=== PATIENT | female | born 1955 | race Hispanic/Latino ===

== ENCOUNTER 2019-11-24 23:00 | Inpatient (IN) | payer MEDICARE ==
[2019-11-25] MEDS ORDERED: SODIUM CHLORIDE 0.9% 1000 ML IV SOLN IV ONE
[2019-11-25] MEDS ORDERED: ACETAMINOPHEN 325 MG TAB PO ONE (00:01)
[2019-11-25] MEDS ORDERED: ZIPRASIDONE MESYLATE 20 MG VIAL IM ONE (00:30)
[2019-11-25] MEDS ORDERED: WATER FOR INJ Sterile (PF) 10 ML ONE (00:41)
--- NOTE | 2019-11-25 00:56 | XRay Report ---
CHEST 1 VIEW INDICATION: Fever. COMPARISON: none FINDINGS: SUPPORT DEVICES: None. HEART / MEDIASTINUM: No significant abnormality. LUNGS / PLEURA: No significant pulmonary or pleural abnormality. No pneumothorax. ADDITIONAL FINDINGS: IMPRESSION: 1. No acute findings. Signer Name: Delfin Roy MD Signed: 11/25/2019 12:51 AM Workstation Name: [id number]
--- NOTE | 2019-11-25 01:39 | Emergency Department Report ---
HPI - General Chief Complaint: Altered Mental Status Time Seen by Provider: 11/24/19 23:55 - HPI HPI: 64-year-old female presents to the emergency department from [facility] after the patient allegedly had an unwitnessed fall. I am unaware of the patient's ambulatory status but the records from [facility] state that she is to use a wheelchair at all times. The patient has a psychiatric history of bipolar disorder and schizoaffective disorder. There also appears to be some history of dementia as the patient is on Aricept. The patient is a very poor historian. 1 minute she is seen sitting up on the side of the bed talking, and the next minute she is laying down and nonverbal. The [employer] employee who was at bedside does not know this patient very well and is here to be a sitter. ED Past Medical Hx - Past Medical History Previous Medical History?: Yes Hx Hypertension: Yes Hx Psychiatric Treatment: Yes (Bipolar schizophrenia) - Surgical History Past Surgical History?: No - Social History Smoking Status: Unknown if ever smoked Substance Use Type: Other - Medications Home Medications: Home Medications Medication Instructions Recorded Confirmed Last Taken Type Aricept 5 mg PO DAILY 11/25/19 11/25/19 Unknown History Benadryl 50 mg IM Q4H PRN 11/25/19 11/25/19 Unknown History Benadryl CAP 50 mg PO Q4H PRN 11/25/19 11/25/19 Unknown History Cogentin 1 mg PO BID 11/25/19 11/25/19 Unknown History Cogentin 1 mg PO BID 11/25/19 11/25/19 11/24/19 History Haldol 0.5 mg PO BID 11/25/19 11/25/19 11/24/19 History Haldol 5 mg IM Q4H PRN 11/25/19 11/25/19 Unknown History Haldol 5 mg PO Q4H PRN 11/25/19 11/25/19 Unknown History Maalox Advanced Suspension 30 ml PO Q8H PRN 11/25/19 11/25/19 Unknown History Milk of Magnesia 30 ml PO Q12H PRN 11/25/19 11/25/19 Unknown History Mucinex ER 1 tab PO BID 11/25/19 11/25/19 11/24/19 History PROzac 10 mg PO DAILY 11/25/19 11/25/19 11/24/19 History Pepcid 20 mg PO BID 11/25/19 11/25/19 11/24/19 History RisperDAL 4 mg PO DAILY 11/25/19 11/25/19 Unknown History Synthroid 75 mcg PO DAILY 11/25/19 11/25/19 11/24/19 History Tessalon Perles 200 mg PO BID PRN 11/25/19 11/25/19 Unknown History Tylenol 650 mg PO Q4H PRN 11/25/19 11/25/19 Unknown History Zyrtec 10mg tab 10 mg PO DAILY 11/25/19 11/25/19 11/24/19 History ED Review of Systems ROS: Stated complaint: AMS Other details as noted in HPI Comment: Unobtainable due to pts medical conditions Physical Exam - Physical Exam Vital Signs: Vital Signs 11/24/19 23:54 Temperature 101.4 F H Pulse Rate 98 H Respiratory 18 Rate Blood Pressure 103/55 [Left] O2 Sat by Pulse 92 Oximetry Physical Exam: GENERAL: The patient is well-developed well-nourished. HEENT: Normocephalic. Atraumatic. Patient has moist mucous membranes. EYES: Extraocular motions are intact. Pupils equal and reactive to light bilater ally. NECK: Supple. Trachea is midline CHEST/LUNGS: Clear to auscultation. There is no respiratory distress noted. HEART/CARDIOVASCULAR: Regular. There is no tachycardia. ABDOMEN: Abdomen is soft, nontender. Patient has normal bowel sounds. There is no abdominal distention. SKIN: Skin is warm and dry. NEURO: Patient is awake but is not cooperative. Withdraws from painful stimuli. MUSCULOSKELETAL: There is no tenderness or deformity. There is no evidence of acute injury. ED Course Vital Signs 11/24/19 23:54 Temperature 101.4 F H Pulse Rate 98 H Respiratory 18 Rate Blood Pressure 103/55 [Left] O2 Sat by Pulse 92 Oximetry - ABG Interpretation Ph: 7.506 PCO2: 27 PO2: 62 Bicarbonate: 21 Interpretation: respiratory alkalosis, other (hypoxemia) ED Medical Decision Making - Lab Data Result diagrams: 11/25/19 01:07 11/25/19 01:07 - Radiology Data Radiology results: report reviewed, image reviewed interpreted by me: Chest x-ray does not show any acute process. CT HEAD WITHOUT CONTRAST HISTORY: AMS, fall COMPARISON: None TECHNIQUE: CT imaging of the head was performed in the axial, sagittal, and coronal projec tions and bone algorithm in axial projection in the soft tissue algorithm. All CT scans at this location are performed using CT dose reduction for ALARA by means of automated exposure control. CONTRAST: None. FINDINGS: Cerebral and Cerebellar Hemispheres: No evidence of mass or mass effect. No midline shift. No acute hemorrhage. No acute cortical infarction. No extra-axial fluid collection. Ventricles: Normal in size and configuration for age. Osseous Structures: No significant abnormality. Visualized Paranasal Sinuses: No significant abnormality. Additional Findings: None IMPRESSION: 1. No acute intracranial abnormality. CT imaging of the cervical spine was performed in the axial, sagittal, and coronal projections and bone algorithm in axial projection in the soft tissue algorithm. All CT scans at this location are performed using CT dose reduction for ALARA by means of automated exposure control. C1-C2: The ring of C1 is normal. The odontoid is normal. There is no evidence of an offset. There is no evidence of a fracture. The spinal canal is well maintained. C2-C3: The spinal canal is well maintained. The neural foramina are normal. The vertebral bodies are normal. The posterior elements are intact. There is no evidence of a fracture. C3-C4: The spinal canal is well maintained. Mild facet degenerative changes present in the left. The neural foramina are normal. The vertebral bodies are normal. The posterior elements are intact. There is no evidence of a fracture. C4-C5: Small anterior osteophytes are present. The spinal canal is well maintained. Mild facet degenerative changes present left. The neural foramina are normal. The vertebral bodies are normal. The posterior elements are intact. There is no evidence of a fracture. C5-C6: Small anterior osteophytes present. The spinal canal is well maintained. Mild facet degenerative changes present in the left The neural foramina are normal. The vertebral bodies are normal. The posterior elements are intact. There is no evidence of a fracture. C6-C7: The spinal canal is well maintained. The neural foramina are normal. The vertebral bodies are normal. The posterior elements are intact. There is no evidence of a fracture. C7-T1: The spinal canal is well maintained. The neural foramina are normal. The vertebral bodies are normal. The posterior elements are intact. There is no evidence of a fracture. IMPRESSION: There is no evidence of acute injury involving the cervical spine. - Medical Decision Making This patient presents to the emergency department from her psychiatric facility after having some type of unwitnessed fall. However the patient is allegedly also supposed to be solely using a wheelchair while at their facility. Unknown baseline ambulatory status. She has a history of bipolar disorder and schizoaffective disorder. Initially the patient's vital signs show a fever of 101.4F. There is some borderline hypotension so a septic workup was started. No leukocytosis. A lactic acidosis. She was given IV fluid resuscitation and the blood pressure normalized. She was given Tylenol and Toradol and the fever resolved. Secondary to the unwitnessed fall the patient had a CT scan of the head without contrast and a CT of the cervical spine that did not show any bleed, skull fracture, shift, mass, edema, subluxation or any other acute process. Chest x-ray did not show any pneumonia, pleural effusions, or any other acute process. Patient's labs did show a hypokalemia of 2.8. The patient is not taking anything by mouth at this time so she was given rectal Tylenol and IV Toradol. IV potassium chloride has been started. The fever has resolved. Urinalysis did not show any urinary tract infection. Negative for influenza. The patient started having some transient hypoxia. Supplemental oxygen was added and the patient went back up into the mid to high 90s. An ABG was obtained that showed some hypoxemia and respitory alkalosis. Patient will be admitted to the hospital for further evaluation and treatment was accepted for admission by the hospitalist, Dr. Silva. - Differential Diagnosis sepsis, pneumonia, influenza, UTI Critical Care Time: No Critical care attestation.: If time is entered above; I have spent that time in minutes in the direct care of this critically ill patient, excluding procedure time. ED Disposition Clinical Impression: Hypokalemia, Hypoxemia Fever Qualifiers: Fever type: unspecified Qualified Code(s): R50.9 - Fever, unspecified Disposition: OP ADMIT IP TO THIS HOSP Is pt being admited?: Yes Condition: Fair Time of Disposition: 04:01
[2019-11-25] MEDS ORDERED: cefTRIAXone/NS 1 GM/50 ML 1 GM/50 ML BAG IV ONE (01:40)
[2019-11-25 01:45] LABS: Basophils % (Auto) 0.1 % (0.0-1.8); Hematocrit 39.5 % (30.3-42.9); Hemoglobin 13.5 gm/dl (10.1-14.3); Lymphocytes # (Auto) 0.4 K/mm3 (1.2-5.4); Lymphocytes % (Auto) 5.9 % (13.4-35.0); Mean Corpuscular HGB Conc 34 % (30-34); Mean Corpuscular Volume 95 fl (79-97); Monocytes # (Auto) 0.7 K/mm3 (0.0-0.8); Monocytes % (Auto) 9.4 % (0.0-7.3); Red Blood Count 4.15 M/mm3 (3.65-5.03); Red Cell Distribution Width 14.9 % (13.2-15.2)
[2019-11-25] MEDS ORDERED: ACETAMINOPHEN 650 MG RECT SUPP PR ONE (01:54)
[2019-11-25 02:02] LABS: Alanine Aminotransferase 22 units/L (7-56); Albumin 3.3 g/dL (3.9-5); BUN/Creatinine Ratio 25; Blood Urea Nitrogen 20 mg/dL (7-17); Calcium 8.5 mg/dL (8.4-10.2); Hemolysis Index 17
--- NOTE | 2019-11-25 02:08 | Cat Scan Report ---
CT HEAD WITHOUT CONTRAST HISTORY: AMS, fall COMPARISON: None TECHNIQUE: CT imaging of the head was performed in the axial, sagittal, and coronal projections and bone algori thm in axial projection in the soft tissue algorithm. All CT scans at this location are performed using CT dose reduction for ALARA by means of automated e xposure control. CONTRAST: None. FINDINGS: Cerebral and Cerebellar Hemispheres: No evidence of mass or mass effect. No midline shift. No acute hemorrhage. No acute cortical infarction. No extra-axial fluid collection. Ventricles: Normal in size and configuration for age. Osseous Structures: No significant abnormality. Visualized Paranasal Sinuses: No significant abnormality. Additional Findings: None IMPRESSION: 1. No acute intracranial abnormality. NOTE: Acute infarct may not be visible by noncontrast CT. Signer Name: Delfin Roy MD Signed: 11/25/2019 2:03 AM Workstation Name: [id number]
[2019-11-25] MEDS ORDERED: KETOROLAC 30 MG/1 ML INJ IV ONE (02:10)
--- NOTE | 2019-11-25 02:11 | Cat Scan Report ---
CLINICAL DATA: [See Reason for Exam] AMS, fall TECHNICAL DATA: CT imaging of the cervical spine was performed in the axial, sagittal, and coronal projections and [place] algorithm in axial projection in the soft tissue algorithm. All CT scans at this location are performed using CT dose reduction for ALARA by means of automated e xposure control. C1-C2: The ring of C1 is normal. The odontoid is normal. There is no evidence of an offset. There is no evidence of a fracture. The spinal canal is well maintained. C2-C3: The spinal canal is well maintained. The neural foramina are normal. The vertebral bodies a re normal. The posterior elements are intact. There is no evidence of a fracture. C3-C4: The spinal canal is well maintained. Mild facet degenerative changes present in the left. The neural foramina are normal. The vertebral bodies are normal. The posterior elements are intact. T here is no evidence of a fracture. C4-C5: Small anterior osteophytes are present. The spinal canal is well maintained. Mild facet degene rative changes present left. The neural foramina are normal. The vertebral bodies are normal. The p osterior elements are intact. There is no evidence of a fracture. C5-C6: Small anterior osteophytes present. The spinal canal is well maintained. Mild facet degenerati ve changes present in the left The neural foramina are normal. The vertebral bodies are normal. The posterior elements are intact. There is no evidence of a fracture. C6-C7: The spinal canal is well maintained. The neural foramina are normal. The vertebral bodies a re normal. The posterior elements are intact. There is no evidence of a fracture. C7-T1: The spinal canal is well maintained. The neural foramina are normal. The vertebral bodies a re normal. The posterior elements are intact. There is no evidence of a fracture. IMPRESSION: There is no evidence of acute injury involving the cervical spine. Signer Name: Delfin Roy MD Signed: 11/25/2019 2:07 AM Workstation Name: [id number]
[2019-11-25 02:36] LABS: Platelet Count 75 K/mm3 (140-440)
[2019-11-25] MEDS: POTASSIUM CHLORIDE 10 MEQ 10 MEQ/100 ML BAG IV SCH ×4 (03:00→05:17)
[2019-11-25 03:06] LABS: Bacteria,Urine 1+ /HPF (Negative); Bilirubin,Urine NEG (Negative); Blood,Urine MOD (Negative); Color,Urine Yellow (Yellow)
[2019-11-25] MEDS ORDERED: ONDANSETRON 4 MG/2 ML INJ IV PRN (04:03)
[2019-11-25] MEDS ORDERED: MAGNESIUM HYDROXIDE (MOM) ORAL LIQD UDC PO PRN (04:03)
[2019-11-25] MEDS ORDERED: ACETAMINOPHEN 325 MG TAB PO PRN (04:03)
--- NOTE | 2019-11-25 04:13 | History and Physical Report ---
History of Present Illness Date of examination: 11/25/19 Date of admission: 11/25/19 Chief complaint: Altered mental status History of present illness: 64-year-old female resident of [facility] was brought into the emergency room today for evaluation after having an unwitnessed fall. Patient has known history of bipolar disorder, dementia. She is unable to give a very good history as she appears confused. Sitter who is by patient's bedside also was unable to answer most of the questions as she does not know patient very well. Work-up in the emergency room including CT scan of the head and neck were within normal limits. She however had a fever of about 101 F and was also found to be hypokalemic with a potassium of 2.8. She also had episodes of hypoxia and was subsequently placed on oxygen by nasal cannula. Past History Past Medical History: hypertension, other (Bipolar disorder,Schizophrenia) Past Surgical History: No surgical history Social history: no significant social history Family history: no significant family history Medications and Allergies Allergies Allergy/AdvReac Type Severity Reaction Status Date / Time No Known Allergies Allergy Verified 11/25/19 00:42 Home Medications Medication Instructions Recorded Confirmed Last Taken Type Aricept 5 mg PO DAILY 11/25/19 11/25/19 Unknown History Benadryl 50 mg IM Q4H PRN 11/25/19 11/25/19 Unknown History Benadryl CAP 50 mg PO Q4H PRN 11/25/19 11/25/19 Unknown History Cogentin 1 mg PO BID 11/25/19 11/25/19 Unknown History Cogentin 1 mg PO BID 11/25/19 11/25/19 11/24/19 History Haldol 0.5 mg PO BID 11/25/19 11/25/19 11/24/19 History Haldol 5 mg IM Q4H PRN 11/25/19 11/25/19 Unknown History Haldol 5 mg PO Q4H PRN 11/25/19 11/25/19 Unknown History Maalox Advanced Suspension 30 ml PO Q8H PRN 11/25/19 11/25/19 Unknown History Milk of Magnesia 30 ml PO Q12H PRN 11/25/19 11/25/19 Unknown History Mucinex ER 1 tab PO BID 11/25/19 11/25/19 11/24/19 History PROzac 10 mg PO DAILY 11/25/19 11/25/19 11/24/19 History Pepcid 20 mg PO BID 11/25/19 11/25/19 11/24/19 History RisperDAL 4 mg PO DAILY 11/25/19 11/25/19 Unknown History Synthroid 75 mcg PO DAILY 11/25/19 11/25/19 11/24/19 History Tessalon Perles 200 mg PO BID PRN 11/25/19 11/25/19 Unknown History Tylenol 650 mg PO Q4H PRN 11/25/19 11/25/19 Unknown History Zyrtec 10mg tab 10 mg PO DAILY 11/25/19 11/25/19 11/24/19 History Active Meds: Active Medications Acetaminophen (Tylenol) 650 mg PO Q4H PRN PRN Reason: Pain MILD(1-3)/Fever >100.5/YA Potassium Chloride (Kcl 10meq/100ml) 10 meq in 100 mls @ 100 mls/hr IV Q1H ANEL Stop: 11/25/19 05:59 Last Admin: 11/25/19 03:42 Dose: 100 mls/hr Documented by: Sodium Chloride (Nacl 0.9% 1000 Ml) 1,000 mls @ 125 mls/hr IV DIRECT ANEL Ceftriaxone Sodium (Rocephin/Ns 1 Gm/50 Ml) 1 gm in 50 mls @ 100 mls/hr IV Q24HR ANEL; Protocol Magnesium Hydroxide (Milk Of Magnesia) 30 ml PO Q4H PRN PRN Reason: Constipation Ondansetron HCl (Zofran) 4 mg IV Q8H PRN PRN Reason: Nausea And Vomiting Sodium Chloride (Sodium Chloride Flush Syringe 10 Ml) 10 ml IV BID ANEL Sodium Chloride (Sodium Chloride Flush Syringe 10 Ml) 10 ml IV PRN PRN PRN Reason: LINE FLUSH Review of Systems ROS unobtainable: due to mental status Exam - Constitutional Vitals: Temp Pulse Resp BP Pulse Ox 98.5 F 77 31 H 114/71 98 11/25/19 03:17 11/25/19 03:01 11/25/19 03:01 11/25/19 03:01 11/25/19 03:01 General appearance: Present: no acute distress, disheveled - EENT Eyes: Present: PERRL, EOM intact ENT: hearing intact, clear oral mucosa, dentition normal - Neck Neck: Present: supple, normal ROM - Respiratory Respiratory effort: normal Respiratory: bilateral: CTA - Cardiovascular Rhythm: regular Heart Sounds: Present: S1 & S2 - Extremities Extremities: no ischemia, No edema, Full ROM Peripheral Pulses: within normal limits - Abdominal General gastrointestinal: Present: soft, non-tender, non-distended - Integumentary Integumentary: Present: clear, warm, dry - Musculoskeletal Musculoskeletal: strength equal bilaterally - Psychiatric Psychiatric: agitated - Neurologic Neurologic: CNII-XII intact, moves all extremities, other (Confused) Results - Labs CBC & Chem 7: 11/25/19 01:07 11/25/19 01:07 Labs: Abnormal lab results 11/25/19 11/25/19 11/25/19 Range/Units 01:07 01:07 02:45 MCH 33 H (28-32) pg Plt Count 75 L (140-440) K/mm3 Lymph % (Auto) 5.9 L (13.4-35.0) % [place] % (Auto) 9.4 H (0.0-7.3) % Lymph # 0.4 L (1.2-5.4) K/mm3 Seg Neutrophils % 84.6 H (40.0-70.0) % POC ABG pH 7.506 H (7.35-7.45) POC ABG pCO2 27.3 L (35-45) POC ABG pO2 62 L (80-105) Potassium 2.8 L* (3.6-5.0) mmol/L BUN 20 H (7-17) mg/dL AST 51 H (5-40) units/L Albumin 3.3 L (3.9-5) g/dL Assessment and Plan - Patient Problems (1) Fever Current Visit: Yes Status: Acute Plan to address problem: Etiology is unclear. No obvious source of infection. However blood cultures have been drawn patient placed on empiric IV antibiotics. (2) Hypokalemia Current Visit: Yes Status: Acute Plan to address problem: Potassium will be repleted will monitor chemistry. (3) Hypoxemia Current Visit: Yes Status: Acute Plan to address problem: Patient placed on oxygen and will keep O2 saturation greater or equal to 92%. (4) History of bipolar disorder Current Visit: Yes Status: Acute Plan to address problem: We will continue routine home medications. (5) DVT prophylaxis Current Visit: Yes Status: Acute Plan to address problem: We will place on subcutaneous heparin. (6) Full code status Current Visit: Yes Status: Acute
[2019-11-25] MEDS: HEPARIN 5,000 UNIT/1 ML VIAL SUB-Q SCH ×3 (07:11→21:16)
[2019-11-25] MEDS: SODIUM CHLORIDE 0.9% 1000 ML 1,000 ML IV SCH (07:50)
--- NOTE | 2019-11-25 12:45 | Progress Note ---
Assessment and Plan Assessment and plan: SIRS. Etiology is unclear. No obvious source of infection. However blood cultures have been drawn patient placed on empiric IV antibiotics. Hypokalemia. Replete potassium. Follow-up BMP. Acute hypoxemic respiratory failure. Chest x-ray negative. Bipolar disorder. Psychiatric consultation. History Interval history: No new issues overnight. Patient appears confused. Hospitalist Physical - Constitutional Vitals: Temp Pulse Resp BP Pulse Ox 97.5 F L 66 20 89/52 96 11/25/19 06:59 11/25/19 06:59 11/25/19 06:59 11/25/19 06:59 11/25/19 06:59 General appearance: Present: no acute distress, disheveled - EENT Eyes: Present: PERRL, EOM intact ENT: hearing intact, clear oral mucosa, dentition normal - Neck Neck: Present: supple, normal ROM - Respiratory Respiratory effort: normal Respiratory: bilateral: CTA - Cardiovascular Rhythm: regular Heart Sounds: Present: S1 & S2. Absent: gallop, rub - Extremities Extremities: no ischemia, No edema, Full ROM - Abdominal General gastrointestinal: soft, non-tender, non-distended, normal bowel sounds - Integumentary Integumentary: Present: clear, warm, dry - Neurologic Neurologic: CNII-XII intact, moves all extremities Results - Labs CBC & Chem 7: 11/25/19 01:07 11/25/19 01:07 Labs: Laboratory Last Values WBC 7.2 K/mm3 (4.5-11.0) 11/25/19 01:07 RBC 4.15 M/mm3 (3.65-5.03) 11/25/19 01:07 Hgb 13.5 gm/dl (10.1-14.3) 11/25/19 01:07 Hct 39.5 % (30.3-42.9) 11/25/19 01:07 MCV 95 fl (79-97) 11/25/19 01:07 MCH 33 pg (28-32) H 11/25/19 01:07 MCHC 34 % (30-34) 11/25/19 01:07 RDW 14.9 % (13.2-15.2) 11/25/19 01:07 Plt Count 75 K/mm3 (140-440) L 11/25/19 01:07 Lymph % (Auto) 5.9 % (13.4-35.0) L 11/25/19 01:07 [place] % (Auto) 9.4 % (0.0-7.3) H 11/25/19 01:07 Eos % (Auto) 0.0 % (0.0-4.3) 11/25/19 01:07 Baso % (Auto) 0.1 % (0.0-1.8) 11/25/19 01:07 Lymph # 0.4 K/mm3 (1.2-5.4) L 11/25/19 01:07 [place] # 0.7 K/mm3 (0.0-0.8) 11/25/19 01:07 Eos # 0.0 K/mm3 (0.0-0.4) 11/25/19 01:07 Baso # 0.0 K/mm3 (0.0-0.1) 11/25/19 01:07 Seg Neutrophils % 84.6 % (40.0-70.0) H 11/25/19 01:07 Seg Neutrophils # 6.1 K/mm3 (1.8-7.7) 11/25/19 01:07 POC ABG pH 7.506 (7.35-7.45) H 11/25/19 02:45 POC ABG pCO2 27.3 (35-45) L 11/25/19 02:45 POC ABG pO2 62 (80-105) L 11/25/19 02:45 POC ABG HCO3 21.6 (22-26 mml/L) 11/25/19 02:45 POC ABG Total CO2 22 (23-27mmol/L) 11/25/19 02:45 POC ABG O2 Sat 94 11/25/19 02:45 POC ABG Base Excess -1 ((-2) - (+3)mmol/L) 11/25/19 02:45 FiO2 21 % 11/25/19 02:45 Sodium 138 mmol/L (137-145) 11/25/19 01:07 Potassium 2.8 mmol/L (3.6-5.0) L* 11/25/19 01:07 Chloride 101.0 mmol/L (98-107) 11/25/19 01:07 Carbon Dioxide 22 mmol/L (22-30) 11/25/19 01:07 Anion Gap 18 mmol/L 11/25/19 01:07 BUN 20 mg/dL (7-17) H 11/25/19 01:07 Creatinine 0.8 mg/dL (0.7-1.2) 11/25/19 01:07 Estimated GFR > 60 ml/min 11/25/19 01:07 BUN/Creatinine Ratio 25 % 11/25/19 01:07 Glucose 99 mg/dL (65-100) 11/25/19 01:07 Lactic Acid 1.30 mmol/L (0.7-2.0) 11/25/19 01:07 Calcium 8.5 mg/dL (8.4-10.2) 11/25/19 01:07 Total Bilirubin 0.50 mg/dL (0.1-1.2) 11/25/19 01:07 AST 51 units/L (5-40) H 11/25/19 01:07 ALT 22 units/L (7-56) 11/25/19 01:07 Alkaline Phosphatase 92 units/L (35-129) 11/25/19 01:07 Ammonia 28.0 umol/L (25-60) 11/25/19 01:07 Total Protein 7.0 g/dL (6.3-8.2) 11/25/19 01:07 Albumin 3.3 g/dL (3.9-5) L 11/25/19 01:07 Albumin/Globulin Ratio 0.9 % 11/25/19 01:07 TSH 2.920 mlU/mL (0.270-4.200) 11/25/19 01:07 Urine Color Yellow (Yellow) 11/25/19 02:14 Urine Turbidity Slightly-cloudy (Clear) 11/25/19 02:14 Urine pH 5.0 (5.0-7.0) 11/25/19 02:14 Ur Specific [place] 1.021 (1.003-1.030) 11/25/19 02:14 Urine Protein 30 mg/dl mg/dL (Negative) 11/25/19 02:14 Urine Glucose (UA) Neg mg/dL (Negative) 11/25/19 02:14 Urine Ketones Tr mg/dL (Negative) 11/25/19 02:14 Urine Blood Mod (Negative) 11/25/19 02:14 Urine Nitrite Neg (Negative) 11/25/19 02:14 Urine Bilirubin Neg (Negative) 11/25/19 02:14 Urine Urobilinogen 2.0 mg/dL (<2.0) 11/25/19 02:14 Ur Leukocyte Esterase Sm (Negative) 11/25/19 02:14 Urine WBC (Auto) 6.0 /HPF (0.0-6.0) 11/25/19 02:14 Urine RBC (Auto) 7.0 /HPF (0.0-6.0) 11/25/19 02:14 U Epithel Cells (Auto) 3.0 /HPF (0-13.0) 11/25/19 02:14 Urine Bacteria (Auto) 1+ /HPF (Negative) 11/25/19 02:14 Influenza A (Rapid) Negative (Negative) 11/25/19 02:45 Influenza B (Rapid) Negative (Negative) 11/25/19 02:45 Active Medications - Current Medications Current Medications: Generic Name Dose Route Start Last Admin Trade Name Freq PRN Reason Stop Dose Admin Acetaminophen 650 mg 11/25/19 04:03 Tylenol PO Q4H PRN Pain MILD(1-3)/Fever >100.5/YA Heparin Sodium (Porcine) 5,000 unit 11/25/19 06:00 11/25/19 07:11 Heparin SUB-Q 5,000 unit Q8HR ANEL Administration Sodium Chloride 1,000 mls @ 125 mls/hr 11/25/19 04:15 11/25/19 07:50 Nacl 0.9% 1000 Ml IV 125 mls/hr DIRECT ANEL Administration Ceftriaxone Sodium 1 gm in 50 mls @ 100 mls/hr 11/25/19 22:00 Rocephin/Ns 1 Gm/50 Ml IV Q24HR@2200 ANEL Protocol Magnesium Hydroxide 30 ml 11/25/19 04:03 Milk Of Magnesia PO Q4H PRN Constipation Ondansetron HCl 4 mg 11/25/19 04:03 Zofran IV Q8H PRN Nausea And Vomiting Sodium Chloride 10 ml 11/25/19 10:00 11/25/19 10:17 Sodium Chloride Flush Syringe 10 Ml IV 10 ml BID ANEL Administration Sodium Chloride 10 ml 11/25/19 04:03 Sodium Chloride Flush Syringe 10 Ml IV PRN PRN LINE FLUSH
[2019-11-25] MEDS ORDERED: cefTRIAXone/NS 1 GM/50 ML 1 GM/50 ML BAG IV SCH (22:00)
[2019-11-26] MEDS: SODIUM CHLORIDE 0.9% 1000 ML 1,000 ML IV SCH (01:59)
[2019-11-26] MEDS: HEPARIN 5,000 UNIT/1 ML VIAL SUB-Q SCH (05:33)
[2019-11-26 05:36] LABS: Basophils # (Auto) 0.1 K/mm3 (0.0-0.1); Basophils % (Auto) 2.7 % (0.0-1.8); Hematocrit 38.9 % (30.3-42.9); Hemoglobin 13.2 gm/dl (10.1-14.3); Lymphocytes # (Auto) 0.4 K/mm3 (1.2-5.4); Mean Corpuscular HGB Conc 34 % (30-34); Mean Corpuscular Volume 96 fl (79-97); Monocytes # (Auto) 0.3 K/mm3 (0.0-0.8); Monocytes % (Auto) 6.2 % (0.0-7.3); Red Blood Count 4.07 M/mm3 (3.65-5.03); Red Cell Distribution Width 15.5 % (13.2-15.2)
[2019-11-26 05:45] LABS: Platelet Count 68 K/mm3 (140-440)
[2019-11-26 05:48] LABS: INR 1.08 (0.87-1.13)
[2019-11-26 05:49] LABS: Partial Thromboplastin Time 39.2 Sec. (24.2-36.6)
[2019-11-26 06:01] LABS: BUN/Creatinine Ratio 15; Blood Urea Nitrogen 9 mg/dL (7-17); Calcium 7.6 mg/dL (8.4-10.2); Hemolysis Index 9
[2019-11-26 07:58] VITALS: BP 94/52
[2019-11-26] MEDS ORDERED: POTASSIUM CHLORIDE ER 20 MEQ TAB PO NR (09:32)
--- NOTE | 2019-11-26 09:34 | Discharge Summary ---
Providers - Providers Date of Admission: 11/25/19 04:37 Date of discharge: 11/26/19 Attending physician: DALILA GUILLERMO 11/25/19 12:45 Consult to Mental Health [CONS] Routine Reason For Exam: Bipolar disorder Place consult to:: Mental Health Notified:: Mara Phone number called:: [phone] Was contact made?: Yes If yes, spoke with:: Mara Time called:: 07:45 Primary care physician: JASBIR PENDLETON Hospitalization Reason for admission: fever Condition: Fair Hospital course: 64-year-old female resident of [facility] was brought into the emergency room today for evaluation after having an unwitnessed fall. Patient has known history of bipolar disorder, dementia. She was unable to give a very good history. Work-up in the emergency room including CT scan of the head and neck were within normal limits. She however had a fever of about 101 F and was also found to be hypokalemic with a potassium of 2.8. She also had an episode of hypoxia and was subsequently placed on oxygen by nasal cannula. However, pt had a CXR that was found to be negative. Influenza A and B were negative as well. Negative blood cultures. U/A was also negative. No infectious etiology noted. Pt had potassium repleted and fever resolved. Patient is felt to have received maximal hospital benefit. Dedicated d/c time 32 min Disposition: DC-01 TO HOME OR SELFCARE Core Measure Documentation - Palliative Care Palliative Care/ Comfort Measures: Not Applicable - Core Measures Any of the following diagnoses?: none Exam - Constitutional Vitals: Temp Pulse Resp BP Pulse Ox 98.3 F 83 20 94/52 88 11/26/19 07:49 11/26/19 07:49 11/26/19 07:49 11/26/19 07:49 11/26/19 07:49 General appearance: Present: no acute distress, well-nourished - EENT Eyes: Present: PERRL ENT: hearing intact, clear oral mucosa - Neck Neck: Present: supple, normal ROM - Respiratory Respiratory effort: normal Respiratory: bilateral: CTA - Cardiovascular Heart Sounds: Present: S1 & S2. Absent: rub, click - Extremities Extremities: pulses symmetrical, No edema Peripheral Pulses: within normal limits - Abdominal General gastrointestinal: Present: soft, non-tender, non-distended, normal bowel sounds Female genitourinary: Present: normal - Integumentary Integumentary: Present: clear, warm, dry - Musculoskeletal Musculoskeletal: gait normal, strength equal bilaterally - Psychiatric Psychiatric: appropriate mood/affect, intact judgment & insight - Neurologic Neurologic: CNII-XII intact, moves all extremities Plan Activity: advance as tolerated Weight Bearing Status: Weight Bear as Tolerated Follow up with: JASBIR PENDLETON MD [Primary Care Provider] - 3-5 Days
--- NOTE | 2019-11-26 10:06 | Consultation ---
History of Present Illness - Reason for Consult Consult date: 11/26/19 Reason for consult: Manage mental health - Chief Complaint Chief complaint: Altered mental status - History of Present Psychiatric Illness Admission note states the patient alert,orientedx1. patient is confused and try to get out of bed. patient is 1013. sitter in the room. Marta Arce is a 64y/o female patient who is said to be from [facility]. Sitter at bedside. The patient is awake, and calm. She is confused, and speaks incoherently and in a barely audible tone. When assessing her mentation, she stated "I gotta pay my bills." The patient states she "feels alright." She says she "slept well," and hears voices that say "hello there." PAST PSYCHIATRIC HISTORY: Bipolar, Schizophrenia (chart) PAST MEDICAL HISTORY: HTN (chart) Family Psychiatric History None reported or documented SOCIAL HISTORY Unable to assess due to patient's incoherence REVIEW OF SYSTEMS ROS cannot be reliably obtained from the patient due to her confusion and somnolence. Mental Status Exam Appearance: Wearing appropriate clothing. In bed. Awake. Behavior: Calm Mood: "feel alright" Affect: Congruent with mood Thought Process: Disoriented Speech: low tone, incomprehensible words Thought Content Harmfulness: Unable to assess. Hallucinations: Auditory hallucinations Delusions: none elicited Consciousness: alert. Cognition/Memory: Impaired Insight/Judgment: Poor Assessment Dementia w/Behavioral Disturbances RECOMMENDATIONS MEDICATIONS: Risperidone 0.25mg po daily, Trazodone 50mg po QHS, Melatonin 5mg QHS prn insomnia Risks, benefits and alternatives of medications discussed with the patient, questions answered and consent obtained from patient. PSYCHOTHERAPY: Supportive psychotherapy provided MEDICAL: Per primary team DELIRIUM PRECAUTIONS: Please re-orient patient frequently, keep lights on during the day, and minimize benzodiazepines and opiates as these medications could worsen patient's confusion. DISPOSITION: Acute inpatient psychiatric hospitalization when medically stable. May transfer to 5th floor. LEGAL STATUS: Involuntary Thank you for this consult. Medications and Allergies Allergies Allergy/AdvReac Type Severity Reaction Status Date / Time No Known Allergies Allergy Verified 11/25/19 00:42 Home Medications Medication Instructions Recorded Confirmed Last Taken Type Aricept 5 mg PO DAILY 11/25/19 11/25/19 Unknown History Benadryl CAP 50 mg PO Q4H PRN 11/25/19 11/25/19 Unknown History Cogentin 1 mg PO BID 11/25/19 11/25/19 Unknown History Cogentin 1 mg PO BID 11/25/19 11/25/19 11/24/19 History Haldol 0.5 mg PO BID 11/25/19 11/25/19 11/24/19 History Haldol 5 mg IM Q4H PRN 11/25/19 11/25/19 Unknown History Haldol 5 mg PO Q4H PRN 11/25/19 11/25/19 Unknown History Maalox Advanced Suspension 30 ml PO Q8H PRN 11/25/19 11/25/19 Unknown History Milk of Magnesia 30 ml PO Q12H PRN 11/25/19 11/25/19 Unknown History Mucinex ER 1 tab PO BID 11/25/19 11/25/19 11/24/19 History PROzac 10 mg PO DAILY 11/25/19 11/25/19 11/24/19 History Pepcid 20 mg PO BID 11/25/19 11/25/19 11/24/19 History RisperDAL 4 mg PO DAILY 11/25/19 11/25/19 Unknown History Synthroid 75 mcg PO DAILY 11/25/19 11/25/19 11/24/19 History Tessalon Perles 200 mg PO BID PRN 11/25/19 11/25/19 Unknown History Tylenol 650 mg PO Q4H PRN 11/25/19 11/25/19 Unknown History Zyrtec 10mg tab 10 mg PO DAILY 11/25/19 11/25/19 11/24/19 History Active Meds: Active Medications Acetaminophen (Tylenol) 650 mg PO Q4H PRN PRN Reason: Pain MILD(1-3)/Fever >100.5/YA Last Admin: 11/25/19 22:58 Dose: 650 mg Documented by: Heparin Sodium (Porcine) (Heparin) 5,000 unit SUB-Q Q8HR ANEL Last Admin: 11/26/19 05:33 Dose: 5,000 unit Documented by: Sodium Chloride (Nacl 0.9% 1000 Ml) 1,000 mls @ 125 mls/hr IV DIRECT ANEL Last Admin: 11/26/19 01:59 Dose: 125 mls/hr Documented by: Ceftriaxone Sodium (Rocephin/Ns 1 Gm/50 Ml) 1 gm in 50 mls @ 100 mls/hr IV Q24HR@2200 ANEL; Protocol Last Admin: 11/25/19 21:15 Dose: 100 mls/hr Documented by: Magnesium Hydroxide (Milk Of Magnesia) 30 ml PO Q4H PRN PRN Reason: Constipation Ondansetron HCl (Zofran) 4 mg IV Q8H PRN PRN Reason: Nausea And Vomiting Last Admin: 11/26/19 01:57 Dose: 4 mg Documented by: Potassium Chloride (K-Dur) 40 meq PO ONCE NR Stop: 11/26/19 12:00 Sodium Chloride (Sodium Chloride Flush Syringe 10 Ml) 10 ml IV BID ANEL Last Admin: 11/26/19 09:50 Dose: 10 ml Documented by: Sodium Chloride (Sodium Chloride Flush Syringe 10 Ml) 10 ml IV PRN PRN PRN Reason: LINE FLUSH Mental Status Exam - Vital signs Last Vital Signs Temp 98.3 F 11/26/19 07:49 Pulse 83 11/26/19 07:49 Resp 20 11/26/19 07:49 BP 94/52 11/26/19 07:49 Pulse Ox 88 11/26/19 07:49 Results Result Diagrams: 11/26/19 04:26 11/26/19 04:26 Abnormal lab results 11/26/19 11/26/19 11/26/19 Range/Units 04:26 04:26 04:26 WBC 4.2 L (4.5-11.0) K/mm3 RDW 15.5 H (13.2-15.2) % Plt Count 68 L (140-440) K/mm3 Lymph % (Auto) 9.0 L (13.4-35.0) % Baso % (Auto) 2.7 H (0.0-1.8) % Lymph # 0.4 L (1.2-5.4) K/mm3 Seg Neutrophils % 82.1 H (40.0-70.0) % APTT 39.2 H (24.2-36.6) Sec. Potassium 3.1 L (3.6-5.0) mmol/L Carbon Dioxide 20 L (22-30) mmol/L Creatinine 0.6 L (0.7-1.2) mg/dL Calcium 7.6 L (8.4-10.2) mg/dL All other labs normal.
[2019-11-26] MEDS ORDERED: MELATONIN 5 MG TAB PO PRN (10:35)
--- NOTE | 2019-11-26 11:57 | Progress Note ---
Assessment and Plan Assessment and plan: SIRS. Etiology is unclear. No obvious source of infection. However blood cultures have been drawn patient placed on empiric IV antibiotics. Hypokalemia. Replete potassium. Follow-up BMP. Acute hypoxemic respiratory failure. Chest x-ray negative. Bipolar disorder. Psychiatric following History Interval history: No new issues overnight. Patient appears confused. Hospitalist Physical - Constitutional Vitals: Temp Pulse Resp BP Pulse Ox 98.3 F 83 20 94/52 88 11/26/19 07:49 11/26/19 07:49 11/26/19 07:49 11/26/19 07:49 11/26/19 07:49 General appearance: Present: no acute distress, disheveled - EENT Eyes: Present: PERRL, EOM intact ENT: hearing intact, clear oral mucosa, dentition normal - Neck Neck: Present: supple, normal ROM - Respiratory Respiratory effort: normal Respiratory: bilateral: CTA - Cardiovascular Rhythm: regular Heart Sounds: Present: S1 & S2. Absent: gallop, rub - Extremities Extremities: no ischemia, No edema, Full ROM - Abdominal General gastrointestinal: soft, non-tender, non-distended, normal bowel sounds - Integumentary Integumentary: Present: clear, warm, dry - Neurologic Neurologic: CNII-XII intact, moves all extremities Results - Labs CBC & Chem 7: 11/26/19 04:26 11/26/19 04:26 Labs: Laboratory Last Values WBC 4.2 K/mm3 (4.5-11.0) L 11/26/19 04:26 RBC 4.07 M/mm3 (3.65-5.03) 11/26/19 04:26 Hgb 13.2 gm/dl (10.1-14.3) 11/26/19 04:26 Hct 38.9 % (30.3-42.9) 11/26/19 04:26 MCV 96 fl (79-97) 11/26/19 04:26 MCH 32 pg (28-32) 11/26/19 04:26 MCHC 34 % (30-34) 11/26/19 04:26 RDW 15.5 % (13.2-15.2) H 11/26/19 04:26 Plt Count 68 K/mm3 (140-440) L 11/26/19 04:26 Lymph % (Auto) 9.0 % (13.4-35.0) L 11/26/19 04:26 [place] % (Auto) 6.2 % (0.0-7.3) 11/26/19 04:26 Eos % (Auto) 0.0 % (0.0-4.3) 11/26/19 04:26 Baso % (Auto) 2.7 % (0.0-1.8) H 11/26/19 04:26 Lymph # 0.4 K/mm3 (1.2-5.4) L 11/26/19 04:26 [place] # 0.3 K/mm3 (0.0-0.8) 11/26/19 04:26 Eos # 0.0 K/mm3 (0.0-0.4) 11/26/19 04:26 Baso # 0.1 K/mm3 (0.0-0.1) 11/26/19 04:26 Seg Neutrophils % 82.1 % (40.0-70.0) H 11/26/19 04:26 Seg Neutrophils # 3.5 K/mm3 (1.8-7.7) 11/26/19 04:26 PT 14.1 Sec. (12.2-14.9) 11/26/19 04:26 INR 1.08 (0.87-1.13) 11/26/19 04:26 APTT 39.2 Sec. (24.2-36.6) H 11/26/19 04:26 POC ABG pH 7.506 (7.35-7.45) H 11/25/19 02:45 POC ABG pCO2 27.3 (35-45) L 11/25/19 02:45 POC ABG pO2 62 (80-105) L 11/25/19 02:45 POC ABG HCO3 21.6 (22-26 mml/L) 11/25/19 02:45 POC ABG Total CO2 22 (23-27mmol/L) 11/25/19 02:45 POC ABG O2 Sat 94 11/25/19 02:45 POC ABG Base Excess -1 ((-2) - (+3)mmol/L) 11/25/19 02:45 FiO2 21 % 11/25/19 02:45 Sodium 138 mmol/L (137-145) 11/26/19 04:26 Potassium 3.1 mmol/L (3.6-5.0) L 11/26/19 04:26 Chloride 106.7 mmol/L (98-107) 11/26/19 04:26 Carbon Dioxide 20 mmol/L (22-30) L 11/26/19 04:26 Anion Gap 14 mmol/L 11/26/19 04:26 BUN 9 mg/dL (7-17) 11/26/19 04:26 Creatinine 0.6 mg/dL (0.7-1.2) L 11/26/19 04:26 Estimated GFR > 60 ml/min 11/26/19 04:26 BUN/Creatinine Ratio 15 % 11/26/19 04:26 Glucose 82 mg/dL (65-100) 11/26/19 04:26 Lactic Acid 1.30 mmol/L (0.7-2.0) 11/25/19 01:07 Calcium 7.6 mg/dL (8.4-10.2) L 11/26/19 04:26 Total Bilirubin 0.50 mg/dL (0.1-1.2) 11/25/19 01:07 AST 51 units/L (5-40) H 11/25/19 01:07 ALT 22 units/L (7-56) 11/25/19 01:07 Alkaline Phosphatase 92 units/L (35-129) 11/25/19 01:07 Ammonia 28.0 umol/L (25-60) 11/25/19 01:07 Total Protein 7.0 g/dL (6.3-8.2) 11/25/19 01:07 Albumin 3.3 g/dL (3.9-5) L 11/25/19 01:07 Albumin/Globulin Ratio 0.9 % 11/25/19 01:07 TSH 2.920 mlU/mL (0.270-4.200) 11/25/19 01:07 Urine Color Yellow (Yellow) 11/25/19 02:14 Urine Turbidity Slightly-cloudy (Clear) 11/25/19 02:14 Urine pH 5.0 (5.0-7.0) 11/25/19 02:14 Ur Specific Accord 1.021 (1.003-1.030) 11/25/19 02:14 Urine Protein 30 mg/dl mg/dL (Negative) 11/25/19 02:14 Urine Glucose (UA) Neg mg/dL (Negative) 11/25/19 02:14 Urine Ketones Tr mg/dL (Negative) 11/25/19 02:14 Urine Blood Mod (Negative) 11/25/19 02:14 Urine Nitrite Neg (Negative) 11/25/19 02:14 Urine Bilirubin Neg (Negative) 11/25/19 02:14 Urine Urobilinogen 2.0 mg/dL (<2.0) 11/25/19 02:14 Ur Leukocyte Esterase Sm (Negative) 11/25/19 02:14 Urine WBC (Auto) 6.0 /HPF (0.0-6.0) 11/25/19 02:14 Urine RBC (Auto) 7.0 /HPF (0.0-6.0) 11/25/19 02:14 U Epithel Cells (Auto) 3.0 /HPF (0-13.0) 11/25/19 02:14 Urine Bacteria (Auto) 1+ /HPF (Negative) 11/25/19 02:14 Influenza A (Rapid) Negative (Negative) 11/25/19 02:45 Influenza B (Rapid) Negative (Negative) 11/25/19 02:45 Active Medications - Current Medications Current Medications: Generic Name Dose Route Start Last Admin Trade Name Freq PRN Reason Stop Dose Admin Acetaminophen 650 mg 11/25/19 04:03 11/25/19 22:58 Tylenol PO 650 mg Q4H PRN Administration Pain MILD(1-3)/Fever >100.5/YA Heparin Sodium (Porcine) 5,000 unit 11/25/19 06:00 11/26/19 05:33 Heparin SUB-Q 5,000 unit Q8HR ANEL Administration Sodium Chloride 1,000 mls @ 125 mls/hr 11/25/19 04:15 11/26/19 01:59 Nacl 0.9% 1000 Ml IV 125 mls/hr DIRECT ANEL Administration Ceftriaxone Sodium 1 gm in 50 mls @ 100 mls/hr 11/25/19 22:00 11/25/19 21:15 Rocephin/Ns 1 Gm/50 Ml IV 100 mls/hr Q24HR@2200 ANEL Administration Protocol Magnesium Hydroxide 30 ml 11/25/19 04:03 Milk Of Magnesia PO Q4H PRN Constipation Melatonin 5 mg 11/26/19 10:35 Melatonin PO QHS PRN Sleep Ondansetron HCl 4 mg 11/25/19 04:03 11/26/19 01:57 Zofran IV 4 mg Q8H PRN Administration Nausea And Vomiting Potassium Chloride 40 meq 11/26/19 09:32 K-Dur PO 11/26/19 12:00 ONCE NR Risperidone 0.25 mg 11/26/19 22:00 Risperdal PO BID ANEL Sodium Chloride 10 ml 11/25/19 10:00 11/26/19 09:50 Sodium Chloride Flush Syringe 10 Ml IV 10 ml BID ANEL Administration Sodium Chloride 10 ml 11/25/19 04:03 Sodium Chloride Flush Syringe 10 Ml IV PRN PRN LINE FLUSH Trazodone HCl 50 mg 11/26/19 22:00 Desyrel PO QHS ANEL Nutrition/Malnutrition Assess - Dietary Evaluation Nutrition/Malnutrition Findings: Nutrition Notes Start: 11/26/19 11:33 Freq: Status: Active Protocol: Document 11/26/19 11:33 LP (Rec: 11/26/19 11:40 LP [id number]) Nutrition Notes Need for Assessment generated from: MD Order Initial or Follow up Assessment Current Diagnosis Hypertension Other Pertinent Diagnosis Bipolar, dementia, SIRS Current Diet Regular Labs/Tests K 3.1 Pertinent Medications Zofran NS at 125ml/hr Height 5 ft 8 in Weight 73.8 kg [place] Body Weight (kg) 63.63 BMI 24.7 Weight Status Appropriate Subjective/Other Information Consult for ONS and MST. Pt states not eating well, but does drink very well and would like a supplement. Pt denies wt changes. Burn Absent Trauma Absent Current % PO Negligible Minimum of two criteria No physical signs of malnutrition #1 Nutrition Diagnosis Inadequate oral intake Etiology decreased appetite As Evidenced by Signs and Symptoms Pt states not eating well only drinking fluids Is patient on ventilator? No Is Patient Ambulatory and/or Out of Bed Yes REE-([facility]-ambulatory/OOB) [ 1737.450 [id number]] Calculation Used for Recommendations [facility] Additional Notes Protein needs are 74-89g (1-1. 2g/kg) Fluid needs are 1ml/kcal Nutrition Intervention Change Diet Order: Continue Add Supplement/Snack (indicate name/kcal Ensure Enlive BID chocolate /protein ) Provides kCal: 700 Provides Protein (gm) 40 Goal #1 Meet kcal and protein needs via meals and ONS Anticipated Discharge Needs: Regular diet with ONS BID Follow-Up By: 11/29/19 Additional Comments Follow for intakes and ONS tolerance
--- NOTE | 2019-11-26 13:04 | Discharge Summary ---
Providers - Providers Date of Admission: 11/25/19 04:37 Date of discharge: 11/26/19 Attending physician: DALILA GUILLERMO 11/25/19 12:45 Consult to Mental Health [CONS] Routine Reason For Exam: Bipolar disorder Place consult to:: Mental Health Notified:: Mara Phone number called:: [phone] Was contact made?: Yes If yes, spoke with:: Mara Time called:: 07:45 Primary care physician: JASBIR PENDLETON Hospitalization Reason for admission: fever Condition: Fair Hospital course: 64-year-old female resident of [facility] was brought into the emergency room on 11/25/2019 for evaluation after having an unwitnessed fall. Patient has known history of bipolar disorder, dementia. She was unable to give a very good history as she appeared confused. S Work-up in the emergency room including CT scan of the head and neck were within normal limits. She however had a fever of about 101 F and was also found to be hypokalemic with a potassium of 2.8. The patient was admitted with diagnosis of SIRS, fever and hypokalemia. The patient was treated with empiric IV antibiotics but showed no evidence of signs of obvious infection. Chest x-ray was negative. Blood cultures also found to be negative. Patient had no evidence of leukocytosis. Her potassium was repleted. Patient was felt to be m edically stable for discharge. Psychiatry evaluated the patient and felt that she would be a candidate for [facility]. Therefore, patient is felt to have received maximal hospital inpatient benefit and will be discharged to the [facility]. Dedicated discharge time 32 minutes. Disposition: - TO HOME OR SELFCARE - Discharge Diagnoses (1) Fever Status: Acute Qualifiers: Fever type: unspecified Qualified Code(s): R50.9 - Fever, unspecified (2) History of bipolar disorder Status: Acute (3) Hypokalemia Status: Acute Core Measure Documentation - Palliative Care Palliative Care/ Comfort Measures: Not Applicable - Core Measures Any of the following diagnoses?: none Exam - Constitutional Vitals: Temp Pulse Resp BP Pulse Ox 98.3 F 83 20 94/52 88 11/26/19 07:49 11/26/19 07:49 11/26/19 07:49 11/26/19 07:49 11/26/19 07:49 General appearance: Present: no acute distress, well-nourished - EENT Eyes: Present: PERRL ENT: hearing intact, clear oral mucosa - Neck Neck: Present: supple, normal ROM - Respiratory Respiratory effort: normal Respiratory: bilateral: CTA - Cardiovascular Heart Sounds: Present: S1 & S2. Absent: rub, click - Extremities Extremities: pulses symmetrical, No edema Peripheral Pulses: within normal limits - Abdominal General gastrointestinal: Present: soft, non-tender, non-distended, normal bowel sounds Female genitourinary: Present: normal - Integumentary Integumentary: Present: clear, warm, dry - Musculoskeletal Musculoskeletal: gait normal, strength equal bilaterally - Psychiatric Psychiatric: appropriate mood/affect, intact judgment & insight - Neurologic Neurologic: CNII-XII intact, moves all extremities Plan Activity: advance as tolerated Weight Bearing Status: Weight Bear as Tolerated Diet: regular Follow up with: JASBIR PENDLETON MD [Primary Care Provider] - 3-5 Days
[2019-11-26] MEDS ORDERED: risperiDONE 0.25 MG TAB PO SCH (22:00)
[2019-11-26] MEDS ORDERED: traZODone 50 MG TAB PO SCH (22:00)
== END 2019-11-26 16:24 | DRG 189 ==
LOC: ED 23:00 → 2B-ACE 11-25 04:37
PROVIDERS: ADMIT Internal Medicine Geriatric Medicine; ATTEND Hospitalist
PROC: 4A033R1 Measurement of Arterial Saturation, Peripheral, Percutaneous Approach (ICD-10-PCS; principal; 2019-11-25)
DX: J96.01 Acute respiratory failure with hypoxia (principal); R65.10 Systemic inflammatory response syndrome (SIRS) of non-infectious origin without acute organ dysfunction; F03.91 Unspecified dementia, unspecified severity, with behavioral disturbance; E87.6 Hypokalemia; F31.9 Bipolar disorder, unspecified; I10 Essential (primary) hypertension; F25.0 Schizoaffective disorder, bipolar type; W19.XXXA Unspecified fall, initial encounter; Z79.899 Other long term (current) drug therapy
CPT/HCPCS: 36415; 70450; 71045; 72125; 80048; 80053; 81001; 82140; 82803; 82962; 84443; 85007; 85025; 85027; 85610; 85730; 87040; 87400; 92950; 93005; 93010; 94640; 94660; 94760; G0378; J0171; J0282; J0456; J0696; J1644; J1885; J1940; J2405; J3480; J3486; J7030; J7050; J7060

== ENCOUNTER 2019-11-26 12:44 | Inpatient (IN) | payer MEDICARE ==
[2019-11-26] MEDS ORDERED: MELATONIN 5 MG TAB PO PRN (14:31)
[2019-11-26] MEDS ORDERED: ZIPRASIDONE MESYLATE 20 MG VIAL IM PRN (14:32)
[2019-11-26] MEDS ORDERED: POTASSIUM CHLORIDE ER 20 MEQ TAB PO SCH ×2 (16:00→19:30)
[2019-11-26 16:57] LABS: Basophils % (Auto) 0.1 % (0.0-1.8); Hematocrit 38.1 % (30.3-42.9); Hemoglobin 12.8 gm/dl (10.1-14.3); Lymphocytes # (Auto) 0.6 K/mm3 (1.2-5.4); Lymphocytes % (Auto) 16.6 % (13.4-35.0); Mean Corpuscular HGB Conc 34 % (30-34); Mean Corpuscular Volume 96 fl (79-97); Monocytes # (Auto) 0.3 K/mm3 (0.0-0.8); Red Blood Count 3.97 M/mm3 (3.65-5.03); Red Cell Distribution Width 15.7 % (13.2-15.2)
[2019-11-26 17:02] LABS: Alanine Aminotransferase 21 units/L (7-56); Albumin 2.7 g/dL (3.9-5); BUN/Creatinine Ratio 13; Blood Urea Nitrogen 8 mg/dL (7-17); Calcium 7.6 mg/dL (8.4-10.2); Chol/HDL Ratio 2.33 %; HDL Cholesterol 30 mg/dL (40-59); Hemolysis Index 4; LDL Cholesterol,Direct 25 mg/dL (50-130)
[2019-11-26 17:07] LABS: Platelet Count 78 K/mm3 (140-440)
[2019-11-26] MEDS: POTASSIUM CHLORIDE ER 20 MEQ TAB PO SCH ×2 (19:39→21:54)
--- NOTE | 2019-11-26 19:41 | Consultation ---
History of Present Illness - Reason for Consult Consult date: 11/26/19 Hypokalemia Requesting physician: SARAN AVALOS - History of Present Illness 64 YO Female with HTN, Bipolar, Schizophrenia admitted to geriatric psychiatry unit for medical stabilization. Consult placed by Dr. Avalos for medical management. Patient resting comfortably in day room. Patient cooperative. Laboratory studies reviewed. Patient found to have hypokalemia. Patient denies fever, chills, chest pain, palpitations, shortness of breath, leg swelling, skin rash, leg weakness, muscle tingling, nausea, vomiting, shortness of breath, difficulty breathing, muscle cramping, heart palpitations, low blood pressure, leg weakness, or recent ill contacts. Patient denies any complaints at time of my evaluation and exam. Past History Past Medical History: hypertension, other (see HPI) Past Surgical History: No surgical history, Other (reviewed) Social history: single. denies: smoking Family history: hypertension Medications and Allergies Allergies Allergy/AdvReac Type Severity Reaction Status Date / Time No Known Allergies Allergy Verified 11/25/19 00:42 Home Medications Medication Instructions Recorded Confirmed Last Taken Type Aricept 5 mg PO DAILY 11/25/19 11/25/19 Unknown History Benadryl CAP 50 mg PO Q4H PRN 11/25/19 11/25/19 Unknown History Cogentin 1 mg PO BID 11/25/19 11/25/19 Unknown History Cogentin 1 mg PO BID 11/25/19 11/25/19 11/24/19 History Haldol 0.5 mg PO BID 11/25/19 11/25/19 11/24/19 History Haldol 5 mg IM Q4H PRN 11/25/19 11/25/19 Unknown History Haldol 5 mg PO Q4H PRN 11/25/19 11/25/19 Unknown History Maalox Advanced Suspension 30 ml PO Q8H PRN 11/25/19 11/25/19 Unknown History Milk of Magnesia 30 ml PO Q12H PRN 11/25/19 11/25/19 Unknown History Mucinex ER 1 tab PO BID 11/25/19 11/25/19 11/24/19 History PROzac 10 mg PO DAILY 11/25/19 11/25/19 11/24/19 History Pepcid 20 mg PO BID 11/25/19 11/25/19 11/24/19 History RisperDAL 4 mg PO DAILY 11/25/19 11/25/19 Unknown History Synthroid 75 mcg PO DAILY 11/25/19 11/25/19 11/24/19 History Tessalon Perles 200 mg PO BID PRN 11/25/19 11/25/19 Unknown History Tylenol 650 mg PO Q4H PRN 11/25/19 11/25/19 Unknown History Zyrtec 10mg tab 10 mg PO DAILY 11/25/19 11/25/19 11/24/19 History Active Meds: Active Medications Melatonin (Melatonin) 5 mg PO QHS PRN PRN Reason: Sleep Last Admin: 11/26/19 18:31 Dose: 5 mg Documented by: Potassium Chloride (K-Dur) 40 meq PO Q2HR ANEL Stop: 11/26/19 22:01 Last Admin: 11/26/19 19:39 Dose: 40 meq Documented by: Risperidone (Risperdal) 0.25 mg PO BID ANEL Trazodone HCl (Desyrel) 50 mg PO QHS ANEL Ziprasidone (Geodon) 10 mg IM Q4H PRN PRN Reason: Agitation Review of Systems Constitutional: no weight loss, no weight gain, no fever, no fatigue, no weakness Ears, nose, mouth and throat: no ear pain, no ear discharge, no nasal discharge Breasts: no change in shape, no swelling, no mass Cardiovascular: no chest pain, no orthopnea, no palpitations, no edema, no syncope Respiratory: no cough, no excessive sputum, no hemoptysis, no shortness of b reath Gastrointestinal: no nausea, no vomiting, no constipation, no change in bowel habits, no coffee ground emesis Genitourinary Female: no pelvic pain, no flank pain, no menorrhagia, no dysuria Rectal: no pain, no incontinence, no bleeding Musculoskeletal: no neck stiffness, no neck pain, no shooting arm pain, no arm numbness/tingling, no low back pain, no shooting leg pain Integumentary: no rash, no pruritis, no redness, no sores, no jaundice Neurological: no transient paralysis, no paralysis, no weakness, no parathesias, no tingling, no seizures, no tremors Psychiatric: no memory loss, no change in sleep habits, no sleep disturbances Endocrine: no cold intolerance, no heat intolerance, no polyphagia, no excessive thirst, no polyuria, no nocturia Hematologic/Lymphatic: no easy bruising, no easy bleeding, no lymphadenopathy, no lymphedema Allergic/Immunologic: no urticaria, no wheezing, no anaphylaxis Exam - Constitutional General appearance: Present: no acute distress, well-nourished - EENT Eyes: Present: PERRL ENT: hearing intact, clear oral mucosa - Neck Neck: Present: supple, normal ROM - Respiratory Respiratory effort: normal Respiratory: bilateral: CTA - Cardiovascular Heart Sounds: Present: S1 & S2. Absent: rub, click - Extremities Extremities: pulses symmetrical, No edema Peripheral Pulses: within normal limits - Abdominal General gastrointestinal: Present: soft, non-tender, non-distended, normal bowel sounds Female genitourinary: Present: normal - Integumentary Integumentary: Present: clear, warm, dry - Musculoskeletal Musculoskeletal: gait normal, strength equal bilaterally - Psychiatric Psychiatric: appropriate mood/affect, intact judgment & insight - Neurologic Neurologic: CNII-XII intact, moves all extremities Results - Labs CBC & Chem 7: 11/26/19 16:41 11/26/19 16:41 Labs: Abnormal lab results 11/26/19 11/26/19 Range/Units 16:41 16:41 WBC 3.4 L (4.5-11.0) K/mm3 RDW 15.7 H (13.2-15.2) % Plt Count 78 L (140-440) K/mm3 [place] % (Auto) 10.0 H (0.0-7.3) % Lymph # 0.6 L (1.2-5.4) K/mm3 Seg Neutrophils % 73.3 H (40.0-70.0) % Potassium 2.9 L* (3.6-5.0) mmol/L Carbon Dioxide 21 L (22-30) mmol/L Creatinine 0.6 L (0.7-1.2) mg/dL Glucose 101 H (65-100) mg/dL Calcium 7.6 L (8.4-10.2) mg/dL AST 60 H (5-40) units/L Total Protein 6.0 L (6.3-8.2) g/dL Albumin 2.7 L (3.9-5) g/dL LDL Cholesterol Direct 25 L (50-130) mg/dL HDL Cholesterol 30 L (40-59) mg/dL Assessment and Plan - Patient Problems (1) HTN (hypertension) Current Visit: Yes Status: Acute Qualifiers: Hypertension type: essential hypertension Qualified Code(s): I10 - Essential (primary) hypertension Plan to address problem: Monitor BP q shift, (2) Hypokalemia Current Visit: No Status: Acute Plan to address problem: Potassium repleted, magnesium level, repeat potassium level.No arrythmia. (3) Bipolar 1 disorder Current Visit: Yes Status: Acute Plan to address problem: Continue current therapy as per primary team.
[2019-11-26] MEDS ORDERED: LORazepam 2 MG/ML VIAL IM ONE (22:00)
[2019-11-26] MEDS ORDERED: HALOPERIDOL LACTATE 5 MG/1 ML INJ IM ONE (22:00)
[2019-11-26] MEDS ORDERED: traZODone 50 MG TAB PO SCH (22:00)
[2019-11-26] MEDS ORDERED: risperiDONE 0.25 MG TAB PO SCH (22:00)
[2019-11-27] MEDS ORDERED: LEVOTHYROXINE 75 MCG TAB PO SCH (06:00)
[2019-11-27] MEDS ORDERED: WATER FOR INJ Sterile (PF) 0 ML ONE (08:00)
--- NOTE | 2019-11-27 08:14 | History and Physical Report ---
GP History & Physical - History of Present Illness Date of admission: 11/26/19 Date of Examination: 11/27/19 Reason for Admission: Unable to care for self Chief Complaint: confusion, aggression, irritablity History of Present Illness: Reviewed the patient's chart and discussed progress with nursing staff. The sitter at the patient's bedside said she was agitated and somewhat aggressive in her tone. The nurse notes states received patient restless in bed, disrobed, and pulling off her diaper. patient is non-compliant with NC. patient requires continuous redirection while in bed. patient has a sitter. Mariely Ferrer is a 64 year old female patient who came from [facility] after an unwitnessed fall. She is lying in bed. Asleep. Awakens with tactile stimuli. She replies that her mood is "okay" when asked. She is disoriented, and unable to respond appropriately during most of the interview. PAST PSYCHIATRIC HISTORY: Bipolar, schizophrenia (per chart) PAST MEDICAL HISTORY: HTN (per chart) Family Psychiatric History None reported or documented SOCIAL HISTORY Unable to assess due to disorientation REVIEW OF SYSTEMS Unable to assess due to disorientation MSE Appearance: Wearing appropriate clothing. Asleep Behavior: Disorganized Mood: "okay" Affect: Congruent with stated mood Thought Process: Incoherent Speech: Normal rate. Thought Content Harmfulness Denies SI/HI Hallucinations: patient denies Delusions: none elicited Consciousness: Drowsy Cognition/Memory: Impaired Insight/Judgment: Poor Diagnoses: Dementia w/Behavioral Disturbance Treatment Plan Patient will be admitted for inpatient psychiatric evaluation, medication adjustment and close monitoring The patient's behavior, mood, sleep and appetite will be closely monitored. Patient will be enrolled in individual and group therapeutic sessions and encouraged to attend. Patient will be provided with a safe and structured environment. Patient's physical health needs will be addressed by the Hospitalist. Hospitalist Consulted Labs including CBC, CMP, TSH, Lipid profile and Hemoglobin A1C ordered Social Assessment will be completed and the Sand Screener Operator will work with patie nt and family to ensure a suitable and safe disposition Medication adjustment will be made as clinically indicated Usual Wellness [employer]/Preservation: - Trazodone 75mg p qhs - Melatonin 5 mg po QHS to promote circadian rhythm - Risperidone 2mg po BID (home dose) - Resumed home medications I have reviewed this treatment plan, including potential risks and benefits of medications, with the patient and/or family members and relevant hospital providers. Legal Status: Voluntary Reaction to Hospitalization: Accepting Legal Status: Voluntary Patient Problems: Current Active Problems Bipolar 1 disorder (Acute) HTN (hypertension) (Acute) Reaction to Hospitalization: Accepting Medications and Allergies Allergies Allergy/AdvReac Type Severity Reaction Status Date / Time No Known Allergies Allergy Verified 11/25/19 00:42 Home Medications Medication Instructions Recorded Confirmed Last Taken Type Aricept 5 mg PO DAILY 11/25/19 11/27/19 Unknown History Benadryl CAP 50 mg PO Q4H PRN 11/25/19 11/27/19 Unknown History Cogentin 1 mg PO BID 11/25/19 11/27/19 Unknown History Cogentin 1 mg PO BID 11/25/19 11/27/19 11/24/19 History Haldol 0.5 mg PO BID 11/25/19 11/27/19 11/24/19 History Haldol 5 mg IM Q4H PRN 11/25/19 11/27/19 Unknown History Haldol 5 mg PO Q4H PRN 11/25/19 11/27/19 Unknown History Maalox Advanced Suspension 30 ml PO Q8H PRN 11/25/19 11/27/19 Unknown History Milk of Magnesia 30 ml PO Q12H PRN 11/25/19 11/27/19 Unknown History Mucinex ER 1 tab PO BID 11/25/19 11/27/19 11/24/19 History PROzac 10 mg PO DAILY 11/25/19 11/27/19 11/24/19 History Pepcid 20 mg PO BID 11/25/19 11/27/19 11/24/19 History RisperDAL 4 mg PO DAILY 11/25/19 11/27/19 Unknown History Synthroid 75 mcg PO DAILY 11/25/19 11/27/19 11/24/19 History Tessalon Perles 200 mg PO BID PRN 11/25/19 11/27/19 Unknown History Tylenol 650 mg PO Q4H PRN 11/25/19 11/26/19 Unknown History Zyrtec 10mg tab 10 mg PO DAILY 11/25/19 11/27/19 11/24/19 History Active Meds: Active Medications Melatonin (Melatonin) 5 mg PO QHS PRN PRN Reason: Sleep Last Admin: 11/26/19 18:31 Dose: 5 mg Documented by: Risperidone (Risperdal) 0.25 mg PO BID [facility] Last Admin: 11/26/19 21:54 Dose: 0.25 mg Documented by: Trazodone HCl (Desyrel) 50 mg PO QHS [facility] Last Admin: 11/26/19 21:54 Dose: 50 mg Documented by: Ziprasidone (Geodon) 10 mg IM Q4H PRN PRN Reason: Agitation Results - Results Labs/Vitals: Laboratory Last Values WBC 3.4 K/mm3 (4.5-11.0) L 11/26/19 16:41 RBC 3.97 M/mm3 (3.65-5.03) 11/26/19 16:41 Hgb 12.8 gm/dl (10.1-14.3) 11/26/19 16:41 Hct 38.1 % (30.3-42.9) 11/26/19 16:41 MCV 96 fl (79-97) 11/26/19 16:41 MCH 32 pg (28-32) 11/26/19 16:41 MCHC 34 % (30-34) 11/26/19 16:41 RDW 15.7 % (13.2-15.2) H 11/26/19 16:41 Plt Count 78 K/mm3 (140-440) L 11/26/19 16:41 Lymph % (Auto) 16.6 % (13.4-35.0) 11/26/19 16:41 [place] % (Auto) 10.0 % (0.0-7.3) H 11/26/19 16:41 Eos % (Auto) 0.0 % (0.0-4.3) 11/26/19 16:41 Baso % (Auto) 0.1 % (0.0-1.8) 11/26/19 16:41 Lymph # 0.6 K/mm3 (1.2-5.4) L 11/26/19 16:41 [place] # 0.3 K/mm3 (0.0-0.8) 11/26/19 16:41 Eos # 0.0 K/mm3 (0.0-0.4) 11/26/19 16:41 Baso # 0.0 K/mm3 (0.0-0.1) 11/26/19 16:41 Seg Neutrophils % 73.3 % (40.0-70.0) H 11/26/19 16:41 Seg Neutrophils # 2.5 K/mm3 (1.8-7.7) 11/26/19 16:41 Sodium 137 mmol/L (137-145) 11/26/19 16:41 Potassium 2.9 mmol/L (3.6-5.0) L* 11/26/19 19:35 Chloride 104.3 mmol/L (98-107) 11/26/19 16:41 Carbon Dioxide 21 mmol/L (22-30) L 11/26/19 16:41 Anion Gap 15 mmol/L 11/26/19 16:41 BUN 8 mg/dL (7-17) 11/26/19 16:41 Creatinine 0.6 mg/dL (0.7-1.2) L 11/26/19 16:41 Estimated GFR > 60 ml/min 11/26/19 16:41 BUN/Creatinine Ratio 13 % 11/26/19 16:41 Glucose 101 mg/dL (65-100) H 11/26/19 16:41 POC Glucose 154 (70-105) H 11/26/19 20:58 Hemoglobin A1c 5.0 % (4-6) 11/26/19 16:41 Calcium 7.6 mg/dL (8.4-10.2) L 11/26/19 16:41 Magnesium 1.80 mg/dL (1.7-2.3) 11/26/19 19:35 Total Bilirubin 0.40 mg/dL (0.1-1.2) 11/26/19 16:41 AST 60 units/L (5-40) H 11/26/19 16:41 ALT 21 units/L (7-56) 11/26/19 16:41 Alkaline Phosphatase 91 units/L (35-129) 11/26/19 16:41 Total Protein 6.0 g/dL (6.3-8.2) L 11/26/19 16:41 Albumin 2.7 g/dL (3.9-5) L 11/26/19 16:41 Albumin/Globulin Ratio 0.8 % 11/26/19 16:41 Triglycerides 94 mg/dL (2-149) 11/26/19 16:41 Cholesterol 70 mg/dL (50-199) 11/26/19 16:41 LDL Cholesterol Direct 25 mg/dL (50-130) L 11/26/19 16:41 HDL Cholesterol 30 mg/dL (40-59) L 11/26/19 16:41 Cholesterol/HDL Ratio 2.33 % 11/26/19 16:41 TSH 2.850 mlU/mL (0.270-4.200) 11/26/19 16:41 Last Vital Signs Temp Pulse 119 H 11/26/19 22:00 Resp 20 11/26/19 22:00 BP 103/80 11/26/19 22:00 Pulse Ox 84 11/26/19 22:00 Physical Examination - Constitutional Vitals: Vital Signs Temp Pulse Resp BP Pulse Ox 119 H 20 103/80 84 11/26/19 22:00 11/26/19 22:00 11/26/19 22:00 11/26/19 22:00 Mental Status Exam - Vital signs Last Vital Signs Temp Pulse 119 H 11/26/19 22:00 Resp 20 11/26/19 22:00 BP 103/80 11/26/19 22:00 Pulse Ox 84 11/26/19 22:00 Physician Certification - Certification Statement Physician Certification Statement: This is an acknowledgement statement that MARIELY FERRER is a 64 year old F who requires inpatient psychiatric admission for treatment which could reasonably be expected to improve the patient's condition for Estimated period of time patient will need to remain in the hospital: [ ] Plan for post-hospital care: [ ]
[2019-11-27] MEDS ORDERED: risperiDONE 0.25 MG TAB PO SCH ×2 (08:35→08:44)
[2019-11-27] MEDS ORDERED: ACETAMINOPHEN 325 MG TAB PO PRN (08:48)
[2019-11-27] MEDS ORDERED: COGENTIN 1 MG PO SCH (10:00)
[2019-11-27] MEDS ORDERED: FLUoxetine 10 MG TAB PO SCH (10:00)
[2019-11-27] MEDS ORDERED: FAMOTIDINE 20 MG TAB PO SCH (10:00)
[2019-11-27] MEDS ORDERED: DONEPEZIL 5 MG TAB PO SCH (10:00)
[2019-11-27 12:58] VITALS: BP 106/88
--- NOTE | 2019-11-27 16:27 | Discharge Summary ---
Providers - Providers Date of Admission: 11/26/19 16:32 Date of discharge: 11/27/19 Attending physician: SARAN AVALOS MD 11/26/19 14:27 Consult to Physician [CONS] Routine Comment: Consulting Provider: ALOK KNOX Physician Instructions: Reason For Exam: manage medical problems Primary care physician: JASBIR PENDLETON Hospitalization Condition: Stable Hospital course: The patient was provided inpatient psychiatric treatment with safe and supportive environment, group therapy, psychiatric medication, medication adjustment, adverse effect monitor, medical evaluation, medical treatment, social service assessment, social support meeting and placement assessment. The patient is being transferred to a medical floor to receive care more appropriate to her medical needs at this time. Disposition: DC/TX-02 SHRT-TRM GEN HOSP IP Time spent for discharge: 35 Allergies/Adverse Reactions: Allergies No Known Allergies Allergy (Verified 11/25/19 00:42) Vital Signs: Last Vital Signs Temp Pulse 120 H 11/27/19 12:57 Resp 44 H 11/27/19 12:57 BP 106/88 11/27/19 12:57 Pulse Ox 73 L 11/27/19 12:57 Last Lab: Laboratory Last Values WBC 3.4 K/mm3 (4.5-11.0) L 11/26/19 16:41 RBC 3.97 M/mm3 (3.65-5.03) 11/26/19 16:41 Hgb 12.8 gm/dl (10.1-14.3) 11/26/19 16:41 Hct 38.1 % (30.3-42.9) 11/26/19 16:41 MCV 96 fl (79-97) 11/26/19 16:41 MCH 32 pg (28-32) 11/26/19 16:41 MCHC 34 % (30-34) 11/26/19 16:41 RDW 15.7 % (13.2-15.2) H 11/26/19 16:41 Plt Count 78 K/mm3 (140-440) L 11/26/19 16:41 Lymph % (Auto) 16.6 % (13.4-35.0) 11/26/19 16:41 [place] % (Auto) 10.0 % (0.0-7.3) H 11/26/19 16:41 Eos % (Auto) 0.0 % (0.0-4.3) 11/26/19 16:41 Baso % (Auto) 0.1 % (0.0-1.8) 11/26/19 16:41 Lymph # 0.6 K/mm3 (1.2-5.4) L 11/26/19 16:41 [place] # 0.3 K/mm3 (0.0-0.8) 11/26/19 16:41 Eos # 0.0 K/mm3 (0.0-0.4) 11/26/19 16:41 Baso # 0.0 K/mm3 (0.0-0.1) 11/26/19 16:41 Seg Neutrophils % 73.3 % (40.0-70.0) H 11/26/19 16:41 Seg Neutrophils # 2.5 K/mm3 (1.8-7.7) 11/26/19 16:41 Sodium 137 mmol/L (137-145) 11/26/19 16:41 Potassium 3.4 mmol/L (3.6-5.0) L 11/27/19 07:56 Chloride 104.3 mmol/L (98-107) 11/26/19 16:41 Carbon Dioxide 21 mmol/L (22-30) L 11/26/19 16:41 Anion Gap 15 mmol/L 11/26/19 16:41 BUN 8 mg/dL (7-17) 11/26/19 16:41 Creatinine 0.6 mg/dL (0.7-1.2) L 11/26/19 16:41 Estimated GFR > 60 ml/min 11/26/19 16:41 BUN/Creatinine Ratio 13 % 11/26/19 16:41 Glucose 101 mg/dL (65-100) H 11/26/19 16:41 POC Glucose 154 (70-105) H 11/26/19 20:58 Hemoglobin A1c 5.0 % (4-6) 11/26/19 16:41 Calcium 7.6 mg/dL (8.4-10.2) L 11/26/19 16:41 Magnesium 1.90 mg/dL (1.7-2.3) 11/27/19 07:56 Total Bilirubin 0.40 mg/dL (0.1-1.2) 11/26/19 16:41 AST 60 units/L (5-40) H 11/26/19 16:41 ALT 21 units/L (7-56) 11/26/19 16:41 Alkaline Phosphatase 91 units/L (35-129) 11/26/19 16:41 Total Protein 6.0 g/dL (6.3-8.2) L 11/26/19 16:41 Albumin 2.7 g/dL (3.9-5) L 11/26/19 16:41 Albumin/Globulin Ratio 0.8 % 11/26/19 16:41 Triglycerides 94 mg/dL (2-149) 11/26/19 16:41 Cholesterol 70 mg/dL (50-199) 11/26/19 16:41 LDL Cholesterol Direct 25 mg/dL (50-130) L 11/26/19 16:41 HDL Cholesterol 30 mg/dL (40-59) L 11/26/19 16:41 Cholesterol/HDL Ratio 2.33 % 11/26/19 16:41 TSH 2.850 mlU/mL (0.270-4.200) 11/26/19 16:41 Core Measure Documentation - Palliative Care Palliative Care/ Comfort Measures: Not Applicable - Core Measures Any of the following diagnoses?: none Exam - Constitutional Vitals: Temp Pulse Resp BP Pulse Ox 120 H 44 H 106/88 73 L 11/27/19 12:57 11/27/19 12:57 11/27/19 12:57 11/27/19 12:57 General appearance: Present: well-nourished - EENT Eyes: Present: PERRL, EOM intact ENT: hearing intact, clear oral mucosa - Neck Neck: Present: supple, normal ROM Plan Follow up with: JASBIR PENDLETON MD [Primary Care Provider] - 7 Days
[2019-11-27 17:51] LABS: ABG Base Excess -2.4 mmol/L (-2.0-3.0); ABG HCO3 20.3 mmol/L (20.0-26.0); ABG Methemoglobin 0.5 % (0.0-1.5); ABG Oxygen Saturation 93.3 % (95.0-99.0); ABG PH 7.449 pH Units (7.350-7.450); ABG PO2 59.2 mm Hg (80.0-90.0)
--- NOTE | 2019-11-27 19:08 | History and Physical Report ---
History of Present Illness Date of admission: 11/26/19 16:32 Past History Past Medical History: hypertension, other (see HPI) Past Surgical History: No surgical history, Other (reviewed) Social history: single. denies: smoking Family history: hypertension Medications and Allergies Allergies Allergy/AdvReac Type Severity Reaction Status Date / Time No Known Allergies Allergy Verified 11/25/19 00:42 Home Medications Medication Instructions Recorded Confirmed Last Taken Type Aricept 5 mg PO DAILY 11/25/19 11/27/19 Unknown History Cogentin 1 mg PO BID 11/25/19 11/27/19 Unknown History Mucinex ER 1 tab PO BID 11/25/19 11/27/19 11/24/19 History PROzac 10 mg PO DAILY 11/25/19 11/27/19 11/24/19 History Pepcid 20 mg PO BID 11/25/19 11/27/19 11/24/19 History Synthroid 75 mcg PO DAILY 11/25/19 11/27/19 11/24/19 History Tessalon Perles 200 mg PO BID PRN 11/25/19 11/27/19 Unknown History Donepezil [Aricept] 5 mg PO DAILY tablet 11/27/19 Unknown Rx risperiDONE [RisperDAL] 2 mg PO BID tablet 11/27/19 Unknown Rx traZODone [Desyrel] 75 mg PO QHS tablet 11/27/19 Unknown Rx Active Meds: Active Medications Acetaminophen (Tylenol) 650 mg PO Q4H PRN PRN Reason: Pain, Mild (1-3) Donepezil HCl (Aricept) 5 mg PO DAILY [facility] Last Admin: 11/27/19 10:54 Dose: 5 mg Documented by: Famotidine (Pepcid) 20 mg PO BID [facility] Last Admin: 11/27/19 10:54 Dose: 20 mg Documented by: Fluoxetine HCl (Prozac) 10 mg PO QDAY [facility] Last Admin: 11/27/19 10:54 Dose: 10 mg Documented by: Levothyroxine Sodium (Synthroid) 75 mcg PO DAILY@0600 [facility] Melatonin (Melatonin) 5 mg PO QHS PRN PRN Reason: Sleep Last Admin: 11/26/19 18:31 Dose: 5 mg Documented by: Risperidone (Risperdal) 2 mg PO BID [facility] Last Admin: 11/27/19 10:54 Dose: 2 mg Documented by: Trazodone HCl (Desyrel) 75 mg PO QHS ANEL Ziprasidone (Geodon) 10 mg IM Q4H PRN PRN Reason: Agitation Exam - Constitutional Vitals: Temp Pulse Resp BP Pulse Ox 120 H 44 H 106/88 88 11/27/19 12:57 11/27/19 12:57 11/27/19 12:57 11/27/19 17:05 Results - Labs CBC & Chem 7: 11/26/19 16:41 11/27/19 07:56 Labs: Abnormal lab results 11/26/19 11/26/19 11/27/19 Range/Units 19:35 20:58 07:56 ABG pO2 (80.0-90.0) mm Hg ABG O2 Saturation (95.0-99.0) % ABG Base Excess (-2.0-3.0) mmol/L Oxyhemoglobin (95.0-99.0) % Potassium 2.9 L* 3.4 L (3.6-5.0) mmol/L POC Glucose 154 H (70-105) 11/27/19 Range/Units 17:20 ABG pO2 59.2 L (80.0-90.0) mm Hg ABG O2 Saturation 93.3 L (95.0-99.0) % ABG Base Excess -2.4 L (-2.0-3.0) mmol/L Oxyhemoglobin 91.6 L (95.0-99.0) % Potassium (3.6-5.0) mmol/L POC Glucose (70-105) Assessment and Plan - Patient Problems (1) HTN (hypertension) Current Visit: Yes Status: Acute Qualifiers: Hypertension type: essential hypertension Qualified Code(s): I10 - Essential (primary) hypertension (2) Hypokalemia Current Visit: No Status: Acute (3) Bipolar 1 disorder Current Visit: Yes Status: Acute
[2019-11-27] MEDS ORDERED: methylPREDNISolone Sod Succinate 40 MG/1 ML INJ IV SCH (19:18)
--- NOTE | 2019-11-27 19:47 | XRay Report ---
CHEST 1 VIEW INDICATION: dypsnea. COMPARISON: 2 days prior FINDINGS: Support devices: Unchanged. Heart: Stable. Lungs/Pleura: Lower lung predominant diffuse bilateral pulmonary opacities have developed. No signifi cant effusion, no pneumothorax. IMPRESSION: 1. Interval development of lower lung predominant diffuse bilateral pulmonary opacities. This could b e due to edema or bilateral infiltrates. Follow-up is recommended. Signer Name: Vasiliy Canales MD Signed: 11/27/2019 7:42 PM Workstation Name: [id number]
[2019-11-27 19:54] LABS: Hematocrit 37.3 % (30.3-42.9); Hemoglobin 12.6 gm/dl (10.1-14.3); Mean Corpuscular HGB Conc 34 % (30-34); Mean Corpuscular Volume 95 fl (79-97); Red Blood Count 3.92 M/mm3 (3.65-5.03); Red Cell Distribution Width 15.6 % (13.2-15.2)
[2019-11-27] MEDS ORDERED: ALBUTEROL 2.5 MG/3 ML NEBU IH PRN (19:59)
[2019-11-27 20:10] LABS: Platelet Count 93 K/mm3 (140-440)
[2019-11-27 20:17] LABS: Alanine Aminotransferase 23 units/L (7-56); Albumin 2.5 g/dL (3.9-5); BUN/Creatinine Ratio 14; Blood Urea Nitrogen 10 mg/dL (7-17); Calcium 7.8 mg/dL (8.4-10.2); Hemolysis Index 4
[2019-11-27 21:48] LABS: Basophils % (Manual) 0 % (0.0-1.8); Eosinophils % (Manual) 0 % (0.0-4.3); Total Cells Counted 100
[2019-11-27 21:49] LABS: Platelet Estimate Appears Decreased; RBC Morphology Normal
[2019-11-27] MEDS ORDERED: traZODone 50 MG TAB PO SCH (22:00)
== END 2019-11-27 21:18 | disposition short-term general hospital (02) | DRG 885 ==
LOC: UNDOADMIN 12:44 → 3A 12:44 → 5A 16:32
PROVIDERS: ADMIT Psychiatry & Neurology Psychiatry; ATTEND Psychiatry & Neurology Psychiatry
PROC: 4A033R1 Measurement of Arterial Saturation, Peripheral, Percutaneous Approach (ICD-10-PCS; principal; 2019-11-27)
DX: F31.9 Bipolar disorder, unspecified (principal); I10 Essential (primary) hypertension; E87.6 Hypokalemia; F20.9 Schizophrenia, unspecified
CPT/HCPCS: 36415; 36600; 71045; 80053; 80061; 82803; 82962; 83036; 83735; 84132; 84443; 85007; 85025; 94640; 94760; G0378; J1630; J2060; J2920; J3486